=== PATIENT | male | born 1970 | race Caucasian/White ===

== ENCOUNTER 2025-09-07 07:52 | Day surgery (SDC) | payer BC ==
[2025-09-07] MEDS: Lactated Ringers 1,000 ML IV SCH (08:35)
[2025-09-07] MEDS ORDERED: Midazolam 1 MG/ML 2 ML SDV ONE (08:38)
[2025-09-07] MEDS ORDERED: Propofol 200 MG/20 ML SDV ONE ×2 (08:38→10:29)
[2025-09-07] MEDS ORDERED: fentaNYL 50 MCG/ML SDV ONE (08:38)
== END 2025-09-07 11:28 | disposition home or self-care (01) ==
LOC: JP.SDS 07:52
PROVIDERS: ATTEND Family Medicine
DX: Z12.11 Encounter for screening for malignant neoplasm of colon (principal); D12.8 Benign neoplasm of rectum; K57.30 Diverticulosis of large intestine without perforation or abscess without bleeding
CPT/HCPCS: 00811; 45385; 88305; J2250; J2704; J3010; J7120